=== PATIENT | female | born 1930 | race Caucasian/White ===

== ENCOUNTER → 2017-02-09 | Outpatient (CLI) | payer MEDICARE, MEDICAID ==
--- NOTE | 2017-02-09 16:24 | PCVCIMAG ---
EXAM: LEFT SUPERFICIAL VENOUS DUPLEX INDICATION: Leg pain and swelling. FINDINGS: Left leg: No thrombus in the common femoral, main femoral, or popliteal veins. These veins are compressible. Left Great Saphenous Vein: Postsurgical changes of previous vein stripping.. Left Small Saphenous Vein: At the saphenopopliteal junction the diameter is 5.5 mm, and in the calf it is 5.4 mm. There is significant venous insufficiency/reflux throughout. Venous insufficiency/reflux duration is 1.8 seconds. There is a cranial extension present. IMPRESSION: Left Great Saphenous Vein: Changes of postsurgical stripping. Left Small Saphenous Vein: Significant venous insufficiency/reflux is present as noted above. LOC:[id number]
== END | disposition home or self-care (01) ==
LOC: PCVCIMAG 14:48
PROVIDERS: ATTEND Nuclear Medicine Nuclear Cardiology
DX: I87.2 Venous insufficiency (chronic) (peripheral) (principal); S81.802A Unspecified open wound, left lower leg, initial encounter; E78.00 Pure hypercholesterolemia, unspecified; I48.0 Paroxysmal atrial fibrillation; I10 Essential (primary) hypertension; M81.0 Age-related osteoporosis without current pathological fracture; K21.9 Gastro-esophageal reflux disease without esophagitis; E03.9 Hypothyroidism, unspecified; X58.XXXA Exposure to other specified factors, initial encounter; Y93.89 Activity, other specified; Y92.89 Other specified places as the place of occurrence of the external cause; Y99.8 Other external cause status; Z88.2 Allergy status to sulfonamides; Z88.6 Allergy status to analgesic agent; Z91.048 Other nonmedicinal substance allergy status
CPT/HCPCS: 93971; G0463

== ENCOUNTER → 2017-02-14 | Outpatient (CLI) | payer MEDICARE, MEDICAID ==
--- NOTE | 2017-02-14 11:50 | PCVCINTER ---
EXAM: 1. INTRAVASCULAR ULTRASOUND OF THE INFERIOR VENA CAVA 2. INTRAVASCULAR ULTRASOUND OF THE RIGHT COMMON AND EXTERNAL ILIAC AND COMMON FEMORAL VEINS 3. INTRAVASCULAR ULTRASOUND OF THE LEFT COMMON AND EXTERNAL ILIAC AND COMMON FEMORAL VEINS 4. INFERIOR VENA CAVA AND BILATERAL ILIOFEMORAL VENOGRAPHY INDICATION: Iliofemoral venous obstruction. Chronic Venous Insufficiency Class 6. Leg pain and swelling. Failed conservative therapy including medical grade compression stockings for at least 3 months. Venous hypertension chronic. PROCEDURE: Procedure and risks of IVC and ileofemoral venography and intravascular ultrasound, and venous stent placement as appropriate including bleeding, infection, venous thrombosis, stent migration/thrombosis, contrast-induced nephropathy requiring dialysis, stroke, and were discussed with the patient and consent obtained. Patient was given IV antibiotics. The patient's right neck and chest was prepped and draped in the normal sterile fashion. IV conscious sedation was used throughout the procedure with appropriate monitoring. Ultrasound was used to interrogate the neck and showed the internal jugular vein to be patent. A spot ultrasound image of the internal jugular vein was saved. Under ultrasound guidance access into the right internal jugular vein was obtained and an 8F sheath was placed to the level of the lower IVC. Catheter was placed into the lower IVC and IVC cavogram performed. Catheter was placed to the level of the right common femoral vein and right iliofemoral venogram obtained. Catheter was placed to the level of the left common femoral vein and left iliofemoral venogram was obtained. The 8 [place] intravascular ultrasound catheter was then placed to the level of the right common femoral vein and intravascular ultrasound evaluation of the right common femoral, right external iliac, and right common iliac veins was accomplished in a pull-back fashion. The 8 [place] intravascular ultrasound catheter was then placed to the level of the left common femoral vein and intravascular ultrasound evaluation of the left common femoral, left external iliac, and left common iliac veins was accomplished in a pull-back fashion. Intravascular ultrasound evaluation of the inferior vena cava was then accomplished in a pullback fashion. Sheath was removed and hemostasis obtained using manual pressure. FINDINGS: IVC INTRAVASCULAR ULTRASOUND: Normal vessel: 16.8 x 24.7 mm. Area = 320.6 sq. mm. RIGHT COMMON ILIAC VEIN INTRAVASCULAR ULTRASOUND: Normal vessel: 11.5 x 15.5 mm. Area = 143.3 sq. mm. RIGHT EXTERNAL ILIAC VEIN INTRAVASCULAR ULTRASOUND: Normal vessel: 11.1 x 13.3 mm. Area = 117.8 sq. mm. RIGHT COMMON FEMORAL VEIN INTRAVASCULAR ULTRASOUND: Normal vessel: 11.2 x 12.5 mm. Area = 113.0 sq. mm. LEFT COMMON ILIAC VEIN INTRAVASCULAR ULTRASOUND: Normal vessel: 10.8 x 17.7 mm. Area = 165.5 sq. mm. LEFT EXTERNAL ILIAC VEIN INTRAVASCULAR ULTRASOUND: Normal vessel: 9.8 x 16.2 mm. Area = 124.6 sq. mm. LEFT COMMON FEMORAL VEIN INTRAVASCULAR ULTRASOUND: Normal vessel: 13.0 x 15.8 mm. Area = 163.1 sq. mm. VENOGRAPHY: INFERIOR VENA CAVA: Vessel is patent without significant stenosis, scarring, or extrinsic compression. RIGHT COMMON ILIAC VEIN: Vessel is patent without significant stenosis, scarring, or extrinsic compression. RIGHT EXTERNAL ILIAC VEIN: Vessel is patent without significant stenosis, scarring, or extrinsic compression. RIGHT COMMON FEMORAL VEIN: Vessel is patent without significant stenosis, scarring, or extrinsic compression. LEFT COMMON ILIAC VEIN: Vessel is patent without significant stenosis, scarring, or extrinsic compression. LEFT EXTERNAL ILIAC VEIN: Vessel is patent without significant stenosis, scarring, or extrinsic compression. LEFT COMMON FEMORAL VEIN: Vessel is patent without significant stenosis, scarring, or extrinsic compression. IMPRESSION: Intravascular ultrasound and venographic evaluation of the inferior vena cava and the common and external iliac and common femoral veins bilaterally is within normal limits. No evidence of significant venous obstruction is identified. LOC:[id number]
== END | disposition home or self-care (01) ==
LOC: PCVCINTER 09:48
PROVIDERS: ATTEND Nuclear Medicine Nuclear Cardiology
DX: I87.1 Compression of vein (principal); I87.2 Venous insufficiency (chronic) (peripheral); I87.309 Chronic venous hypertension (idiopathic) without complications of unspecified lower extremity; E78.00 Pure hypercholesterolemia, unspecified; E78.5 Hyperlipidemia, unspecified
CPT/HCPCS: 36012; 37252; 37253; 75822; 75825; 76937; 99152; 99153; C1751; C1753; C1769; C1894; Q9967

== ENCOUNTER → 2017-02-21 | Outpatient (CLI) | payer MEDICARE, MEDICAID ==
[~2017-02-21] MED LIST: ARNICA TOPICAL GEL 1.5OZ TUBE. TP ONE; CEPHALEXIN 250 MG CAPSULE. ONE; DIAZEPAM 10 MG TABLET. ONE; EPINEPHrine 1 MG/ML VIAL ONE; IV NORMAL SALINE 1000ML BAG 1,000 ML ONE; LIDOCAINE 1% Multi-Dose 20 ML VIAL. ONE; SODIUM BICARBONATE 50 MEQ/50 ML VIAL. ONE
--- NOTE | 2017-02-21 11:19 | PCVCINTER ---
EXAM: LEFT SMALL SAPHENOUS VEIN ENDOVENOUS LASER ABLATION INDICATION: Chronic Venous Insufficiency Class 6. Leg pain and swelling. Failed conservative therapy including medical grade compression stockings for at least 3 months. Venous hypertension chronic. PROCEDURE: Procedure and risks of endovenous laser ablation including thrombosis, vascular injury, nerve injury, skin necrosis, and infection were discussed with the patient and consent obtained. The left leg was prepped and draped in the normal sterile fashion. Using ultrasound guidance access into the left small saphenous vein was obtained and a 5F 45 cm long catheter was advanced to 2 cm below the saphenopopliteal junction. The laser fiber was advanced through the catheter to its tip and the catheter partially retracted. Abundant tumescent anesthesia using a dilute lidocaine solution was given in the perivenous tissues throughout the length of the laser fiber. Ultrasound confirmed good position of the distal tip of the laser fiber as well as direct transcutaneous visualization. The 1470 [place]orn[place] laser was set to 5 young and a slow continuous pull-back technique employed to deliver 1838 Joules throughout the treated segment. Catheter and fiber were removed and hemostasis obtained. No immediate complications. The leg was dressed and wrapped appropriately and reinforced with a compression stocking. IMPRESSION: Satisfactory endovenous laser ablation of the left small saphenous vein. LOC:[id number]
== END | disposition home or self-care (01) ==
LOC: PCVCINTER 07:35
PROVIDERS: ATTEND Nuclear Medicine Nuclear Cardiology
DX: I87.2 Venous insufficiency (chronic) (peripheral) (principal); E78.00 Pure hypercholesterolemia, unspecified; K21.9 Gastro-esophageal reflux disease without esophagitis; M10.9 Gout, unspecified; I10 Essential (primary) hypertension; E03.9 Hypothyroidism, unspecified; I48.0 Paroxysmal atrial fibrillation; M81.0 Age-related osteoporosis without current pathological fracture; Z83.3 Family history of diabetes mellitus; Z88.6 Allergy status to analgesic agent; Z88.2 Allergy status to sulfonamides
CPT/HCPCS: 36478; C1751; C1769; C1894; J0171; J7030